=== PATIENT | male | born 1955 | race Caucasian/White ===

== ENCOUNTER 2019-11-06 04:53 | Inpatient (IN) | payer SELFPAY ==
[~2019-11-06] VITALS: Ht 193 cm; Wt 98.1 kg
[2019-11-06] MEDS ORDERED: HALOPERIDOL 5 MG/ML ONE ×2 (05:15→05:34)
--- NOTE | 2019-11-06 05:17 | NUR ---
PT QUITE COMBATIVE, SECURITY CALLED TO ROOM, PT MEDICATED PER MAR. WILL OBTAIN VITALS ONCE PT HAS CALMED DOWN.
[2019-11-06] MEDS ORDERED: HALOPERIDOL 5 MG/ML IM ONE ×2 (05:30→06:00)
--- NOTE | 2019-11-06 05:39 | NUR ---
PT CONTINUES TO BE COMBATIVE, SECURITY AT BEDSIDE. MEDICATED PER MAR.
--- NOTE | 2019-11-06 06:35 | NUR ---
PT RESTLESS BUT CALMER THAN EARLIER. MONITOR IN PLACE, LABS OBTAINED.
[2019-11-06 06:40] LABS: BASOPHILS # (AUTO) 0.07 x10^3/uL (0-0.1); BASOPHILS % (AUTO) 1 % (0-1); EOSINOPHILS # (AUTO) 0.07 x10^3/uL (0-0.4); EOSINOPHILS % (AUTO) 1 % (1-7); LYMPHOCYTES # (AUTO) 2.95 x10^3/uL (1-3.4); LYMPHOCYTES % (AUTO) 30 % (22-44); MD NO; MEAN CORPUSCULAR HEMOGLOBIN 29.8 pg (27.5-34.5); MEAN CORPUSCULAR HGB CONC 33.7 g/dL (33.2-36.2); MEAN CORPUSCULAR VOLUME 88.2 fL (81-97); MEAN PLATELET VOLUME 8.4 fL (7.4-10.4); MONOCYTES # (AUTO) 0.47 x10^3/uL (0.2-0.8); MONOCYTES % (AUTO) 5 % (2-9); NEUTROPHILS # (AUTO) 6.31 x10^3/uL (1.8-6.8); NEUTROPHILS % (AUTO) 64 % (42-75); PLATELET COUNT 249 x10^3/uL (130-400); RED BLOOD COUNT 5.55 x10^6/uL (4.38-5.82); RED CELL DISTRIBUTION WIDTH 15.6 % (9.4-14.8)
[2019-11-06 06:49] LABS: ALBUMIN 3.3 g/dL (3.4-5.0); ANION GAP 11 mmol/L (5-15); CALCIUM 8.6 mg/dL (8.5-10.1); CHLORIDE 110 mmol/L (98-107)
[2019-11-06 06:50] LABS: CREATININE 1.01 mg/dL (0.7-1.3)
--- NOTE | 2019-11-06 06:51 | NUR ---
PT GOING TO CT AT THIS TIME.
--- NOTE | 2019-11-06 07:47 | NUR ---
pt up walking in hallway, stating he has to void. pt used urinal earlier with success with two person assist. able to do ekg. pt refusing to keep vitals monitors on. pt has sitter at this time as he is still confused with slurred speech.
[2019-11-06] MEDS ORDERED: SODIUM CHLORIDE 0.9% 1,000 ML IV SCH (08:02)
[2019-11-06] MEDS ORDERED: PLEASE ENTER ALLERGIES MC SCH (08:30)
[2019-11-06] MEDS ORDERED: LABETALOL 5MG/ML, 20ML IVPush PRN (08:30)
[2019-11-06] MEDS ORDERED: hydrALAzine 20 MG/ML, 1ML IVPush PRN (08:30)
--- NOTE | 2019-11-06 08:30 | NUR ---
PT DEFICATED IN PANTS. IV STARTED. PT CLEANED UP, PLACED IN GOWN AND CLEAN LINENS PLACED ON GURNEY. ATTEMPTING TO CALL REPORT AT THIS TIME.
[2019-11-06 08:32] LABS: ALANINE AMINOTRANSFERASE 20 U/L (12-78); ALBUMIN 3.3 g/dL (3.4-5.0)
[2019-11-06 08:34] LABS: ALKALINE PHOSPHATASE 65 U/L (45-117); BILIRUBIN,TOTAL 0.2 mg/dL (0.2-1.0); TOTAL PROTEIN 7.2 g/dL (6.4-8.2)
--- NOTE | 2019-11-06 08:40 | NUR ---
UNABLE TO DO MED REQ PT IS CONFUSED, [id number]
--- NOTE | 2019-11-06 08:42 | NUR ---
REPORT TO ELVIRA WOODS
[2019-11-06 08:48] LABS: BILIRUBIN, DIRECT < 0.1 mg/dL (0.1-0.2); BILIRUBIN,INDIRECT 0.1 mg/dL (0.0-2.0)
[2019-11-06] MEDS ORDERED: LACTULOSE 20 GM/30 ML UDC PO STA (09:12)
[2019-11-06 09:17] LABS: BASOPHILS # (AUTO) 0.03 x10^3/uL (0-0.1); BASOPHILS % (AUTO) 0 % (0-1); EOSINOPHILS % (AUTO) 0 % (1-7); LYMPHOCYTES # (AUTO) 1.93 x10^3/uL (1-3.4); LYMPHOCYTES % (AUTO) 20 % (22-44); MD NO; MEAN CORPUSCULAR HEMOGLOBIN 29.4 pg (27.5-34.5); MEAN CORPUSCULAR VOLUME 89.1 fL (81-97); MEAN PLATELET VOLUME 7.9 fL (7.4-10.4); MONOCYTES # (AUTO) 0.54 x10^3/uL (0.2-0.8); MONOCYTES % (AUTO) 5 % (2-9); NEUTROPHILS # (AUTO) 7.35 x10^3/uL (1.8-6.8); NEUTROPHILS % (AUTO) 75 % (42-75); PLATELET COUNT 286 x10^3/uL (130-400); RED BLOOD COUNT 5.77 x10^6/uL (4.38-5.82); RED CELL DISTRIBUTION WIDTH 15.3 % (9.4-14.8)
[2019-11-06 09:28] LABS: INTERNATIONAL NORMALIZED RATIO 0.94 (0.93-1.1); PROTHROMBIN TIME 9.9 Seconds (9.6-11.5)
[2019-11-06] MEDS: FOLIC ACID 1 MG TABLET PO SCH (10:18)
[2019-11-06] MEDS: THIAMINE 100MG TABLET PO SCH ×2 (10:18→21:12)
[2019-11-06] MEDS: MULTIVITAMIN 1 TABLET PO SCH (10:18)
[2019-11-06] MEDS: LACTULOSE 10 GM/15 ML UDC PO SCH ×3 (10:18→21:12)
[2019-11-06] MEDS: HEPARIN 5,000 UNITS/ML, 1ML SQ SCH ×2 (10:19→16:30)
[2019-11-06] MEDS: INSULIN LISPRO 100 UNITS/ML, PEN SQ-INSULIN SCH ×3 (11:00→21:13)
[2019-11-06] MEDS: POTASSIUM CHLORIDE 20 MEQ, MAGNESIUM SULFATE 1 GM, THIAMINE 200 MG, FOLIC ACID 1 MG, MV... IV SCH (12:10)
[2019-11-06 13:35] LABS: MICROSCOPIC NOT IND
[2019-11-06 14:09] VITALS: BP 103/57
[2019-11-06 19:25] VITALS: BP 133/90
[2019-11-07] MEDS: HEPARIN 5,000 UNITS/ML, 1ML SQ SCH ×2 (00:30→08:30)
[2019-11-07 01:36] VITALS: BP 136/74
[2019-11-07 06:25] LABS: ALBUMIN 3.1 g/dL (3.4-5.0); ANION GAP 7 mmol/L (5-15); CALCIUM 8.2 mg/dL (8.5-10.1); CHLORIDE 110 mmol/L (98-107)
[2019-11-07 06:33] LABS: ALANINE AMINOTRANSFERASE 18 U/L (12-78); ALKALINE PHOSPHATASE 63 U/L (45-117); BILIRUBIN,TOTAL 0.6 mg/dL (0.2-1.0); CREATININE 0.88 mg/dL (0.7-1.3); TOTAL PROTEIN 6.7 g/dL (6.4-8.2)
[2019-11-07] MEDS: INSULIN LISPRO 100 UNITS/ML, PEN SQ-INSULIN SCH ×2 (07:00→11:00)
[2019-11-07 07:14] VITALS: BP 145/89
[2019-11-07] MEDS ORDERED: SODIUM CHLORIDE 0.9% 1,000 ML IV SCH ×2 (08:02)
[2019-11-07] MEDS: MULTIVITAMIN 1 TABLET PO SCH (09:00)
[2019-11-07] MEDS: FOLIC ACID 1 MG TABLET PO SCH (09:00)
[2019-11-07] MEDS: LACTULOSE 10 GM/15 ML UDC PO SCH (09:00)
[2019-11-07] MEDS: THIAMINE 100MG TABLET PO SCH (09:00)
[2019-11-07] MEDS: POTASSIUM CHLORIDE 20 MEQ, MAGNESIUM SULFATE 1 GM, THIAMINE 200 MG, FOLIC ACID 1 MG, MV... IV SCH (10:00)
== END 2019-11-07 13:15 | disposition home or self-care (01) | DRG 433 ==
LOC: MERGE 04:53 → EDBD 04:53 → ED 07:48 → 3N 09:22 → DCLOUNGE 11-07 13:05
PROVIDERS: ADMIT Internal Medicine; ATTEND Internal Medicine
DX: K70.40 Alcoholic hepatic failure without coma (principal); E87.2 Acidosis; F10.120 Alcohol abuse with intoxication, uncomplicated; Y90.1 Blood alcohol level of 20-39 mg/100 ml
CPT/HCPCS: 36415; 70450; 71045; 80048; 80053; 80076; 80307; 81003; 82040; 82140; 82607; 82962; 83036; 83605; 84443; 85025; 85610; 93005; 99285; G0378; J1644; J3411; J3475; J3480; J1630; J7030